=== PATIENT | female | born 1960 | race Caucasian/White ===

== ENCOUNTER 2021-09-08 09:38 | Emergency (ER) | payer OTHER ==
[~2021-09-08] VITALS: Ht 162.6 cm; Wt 83.9 kg
[~2021-09-08 09:38] MED LIST: ADULT LOW DOSE81 MG PO; DEPAKOTE500 MG PO; LEXAPRO20 MG PO; NASONEX17 GM NASAL; NORCO 7.5-3251 EACH PO; OS-CAL 500+D C1 EACH PO; PANTOPRAZOLE SO40 M1 PO; PATANASE30.5 GM NASAL; VERAPAMIL ER120 MG PO
[2021-09-08 11:19] LABS: ABSOLUTE BASOPHILS 0.1 thou/uL (0.0-0.2); ABSOLUTE EOSINOPHILS 0.1 thou/uL (0.0-0.7); ABSOLUTE LYMPHOCYTES 1.7 thou/uL (0.8-5.3); ABSOLUTE MONOCYTES 0.6 thou/uL (0.0-1.2); ABSOLUTE NEUTROPHILS 3.4 thou/uL (1.6-8.1); BASOPHILS 1.1 %; EOSINOPHILS 2.5 %; HEMATOCRIT 42.6 % (37.0-47.0); HEMOGLOBIN 14.1 gm/dL (12.0-15.0); LYMPHOCYTES 29.4 %; MCH 30.6 pg (26.0-34.0); MCV 92.9 fL (80.0-100.0); MONOCYTES 9.9 %; NUCLEATED RBCS 0 /100WBC; PLATELET COUNT* 208 thou/uL (150-400); POLYS 57.1 %; RBC 4.59 mil/uL (4.20-5.00); RDW-CV 12.9 % (10.5-14.5); WBC 5.9 thou/uL (4.0-11.0)
[2021-09-08 11:28] LABS: CREATININE 0.9 mg/dL (0.6-1.3)
[2021-09-08 11:33] LABS: ALBUMIN 3.6 g/dL (3.4-5.0); TOTAL BILIRUBIN 0.3 mg/dL (<0.1-1.0)
[2021-09-08 11:37] LABS: CALCIUM 8.8 mg/dL (8.5-10.1)
[2021-09-08 12:24] LABS: ESR (SEDRATE) 22 mm/hr (0-30)
[2021-09-08] MEDS ORDERED: MOBIC7.5 MG PO (12:35)
[2021-09-08 13:02] VITALS: BP 131/69
--- NOTE | 2021-09-08 17:29 | EKG ---
[place] [address] ELECTROCARDIOGRAM REPORT Name: JORGE ELI Room: [facility]#: [id number] Admission: 09/08/21 Attend Phys: Discharge: 09/08/21 Date of : 64 Date of Service: 09/08/21 1117 Report #: [id number] THIS REPORT FOR: //name// [facility] ED Test Date: 2021-09-08 Test Time: 11:17:49 Pat Name: JORGE ELI Department: Room: Gender: Assistant Facility Manager: STUDENT : 1960 Requested By: Abram Sanchez Order Number: [id number] MD: Sam Lassiter Measurements Intervals [place] Rate: 62 P: 62 CA: 223 QRS: 77 QRSD: 79 T: 90 QT: 608 QTc: 618 Interpretive Statements Sinus rhythm Prolonged CA interval Anteroseptal infarct, old Prolonged QT interval Compared to ECG 03/23/2013 08:32:06 Myocardial infarct finding now present Prolonged QT interval now present Sinus bradycardia no longer present T-wave abnormality no longer present Electronically Signed On 09-08-2021 17:28:48 CDT by Sam Lassiter [email or web address] <ELECTRONICALLY SIGNED> By: Sam Lassiter MD, FACC 09/08/21 1728 1117 1117 Sam Lassiter MD, FAC /EPI
--- NOTE | 2021-09-08 17:29 | EKG ---
[place] [address] ELECTROCARDIOGRAM REPORT Name: JORGE ELI Room: [facility]#: [id number] Admission: 09/08/21 Attend Phys: Discharge: 09/08/21 Date of : 64 Date of Service: 09/08/21 1225 Report #: [id number] THIS REPORT FOR: //name// [facility] ED Test Date: 2021-09-08 Test Time: 12:25:42 Pat Name: JORGE ELI Department: Room: Gender: Supplemental Nurse: STUDENT : 1960 Requested By: Abram Sanchez Order Number: [id number] MD: Sam Lassiter Measurements Intervals [place] Rate: 65 P: 3 ME: 226 QRS: 75 QRSD: 72 T: 88 QT: 516 QTc: 537 Interpretive Statements Sinus rhythm Prolonged ME interval Borderline abnrm T, anterolateral leads Prolonged QT interval Compared to ECG 09/08/2021 11:17:49 Myocardial infarct finding no longer present Electronically Signed On 09-08-2021 17:29:14 CDT by Sam Lassiter [email or web address] <ELECTRONICALLY SIGNED> By: Sam Lassiter MD, FACC 09/08/21 1729 1225 1225 Sam Lassiter MD, FAC /EPI
== END 2021-09-08 13:02 | disposition home or self-care (01) ==
LOC: M.ERS 09:38
PROVIDERS: Nurse Practitioner Psychiatric/Mental Health
DX: M54.2 Cervicalgia (principal); H53.10 Unspecified subjective visual disturbances; R94.31 Abnormal electrocardiogram [ECG] [EKG]; K21.9 Gastro-esophageal reflux disease without esophagitis; F17.210 Nicotine dependence, cigarettes, uncomplicated; Z98.61 Coronary angioplasty status; Z79.899 Other long term (current) drug therapy; Z79.82 Long term (current) use of aspirin